=== PATIENT | male | born 2000 | race Caucasian/White ===

== ENCOUNTER 2022-07-10 02:09 | Inpatient (IN) | payer OTHER ==
[~2022-07-10] VITALS: Ht 175.3 cm; Wt 116.4 kg
[2022-07-10 03:48] LABS: HEMATOCRIT 43.9 % (42.0-52.0); MEAN CORPUSCULAR HEMOGLOBIN 28.6 pg (27.0-33.0); MEAN CORPUSCULAR HGB CONC 34.2 g/dl (32.0-36.5); MEAN CORPUSCULAR VOLUME 83.8 fl (80.0-96.0); PLATELET COUNT, AUTOMATED 219 10^3/uL (150-450); RED BLOOD COUNT 5.24 10^6/uL (4.30-6.10); WHITE BLOOD COUNT 8.2 10^3/uL (4.0-10.0)
[2022-07-10 04:05] LABS: ETHYL ALCOHOL (ETHANOL) 0.005 % (0.000-0.010)
[2022-07-10 04:06] LABS: ACETAMINOPHEN LEVEL < 2.0 UG/ML (10.0-20.0); ALBUMIN 4.2 G/DL (3.2-5.2); ALKALINE PHOSPHATASE 83 U/L (46-116); ALT/SGPT 15 U/L (7.0-40); AST/SGOT 18 U/L (<34); BILIRUBIN,DIRECT 0.2 MG/DL (<0.4); BILIRUBIN,TOTAL 0.5 MG/DL (0.3-1.2); BLOOD UREA NITROGEN 18 MG/DL (9-23); CARBON DIOXIDE LEVEL 23 MMOL/L (20-31); CHLORIDE LEVEL 106 MMOL/L (98-107); GLUCOSE, FASTING 81 MG/DL (60-100); POTASSIUM SERUM 3.6 MMOL/L (3.5-5.1); SALICYLATE LEVEL < 3.0 MG/DL (<30); SODIUM LEVEL 142 MMOL/L (136-145); TOTAL PROTEIN 7.2 G/DL (5.7-8.2)
[2022-07-10 04:08] LABS: THYROID STIMULATING HORMONE 1.387 uIU/ML (0.48-4.17)
[2022-07-10 04:14] LABS: RSV AMPLIFICATION NEGATIVE (NEGATIVE)
[2022-07-10 04:22] LABS: AMPHETAMINES LEVEL URINE NEGATIVE (NEGATIVE); BARBITURATES URINE NEGATIVE (NEGATIVE); BENZODIAZEPINES URINE NEGATIVE (NEGATIVE); CANNABINOIDS URINE NEGATIVE (NEGATIVE); COCAINE METABOLITE URINE NEGATIVE (NEGATIVE); METHADONE URINE NEGATIVE (NEGATIVE); OPIATES URINE NEGATIVE (NEGATIVE); PHENCYCLIDINE URINE NEGATIVE (NEGATIVE)
[2022-07-10] MEDS ORDERED: HOME MED LIST COMPLETE! XX SCH (09:45)
[2022-07-10] MEDS ORDERED: NICOTINE POLACRILEX 2 MG GUM PO ONE (21:15)
[2022-07-12] MEDS ORDERED: NICOTINE POLACRILEX 2 MG GUM PO PRN (16:15)
[2022-07-12] MEDS ORDERED: LORazepam 1 MG TAB PO PRN (18:20)
[2022-07-12] MEDS ORDERED: traZODone 50 MG TAB PO PRN (18:20)
[2022-07-12] MEDS ORDERED: MAALOX 30 ML SUSP *UDC PO PRN (18:20)
[2022-07-12] MEDS ORDERED: ACETAMINOPHEN TAB 650MG DOSE (2X325MG) PO PRN (18:20)
[2022-07-12] MEDS ORDERED: MOM 30ML SUSPENSION UDC PO PRN (18:20)
[2022-07-12 22:54] VITALS: BP 145/72
[2022-07-13 06:37] VITALS: BP 117/58
[2022-07-13 16:07] VITALS: BP 125/74
[2022-07-14 06:39] VITALS: BP 163/73
[2022-07-15 06:20] VITALS: BP 125/57
[2022-07-15 16:24] VITALS: BP 123/59
[2022-07-16 06:47] VITALS: BP 146/68
[2022-07-16 17:35] VITALS: BP 140/66
[2022-07-17 06:39] VITALS: BP 144/64
[2022-07-17 16:25] VITALS: BP 132/83
[2022-07-18 06:01] VITALS: BP 150/86
[2022-07-18 18:25] VITALS: BP 158/68
[2022-07-19 05:59] VITALS: BP 131/79
== END 2022-07-19 13:05 | disposition home or self-care (01) | DRG 881 ==
LOC: EDBD 02:09 → M ED 02:09 → M ED INP 07-12 18:17 → M PSY 07-12 22:37
PROVIDERS: ADMIT Psychiatry & Neurology Psychiatry; ATTEND Psychiatry & Neurology Psychiatry
DX: F43.21 Adjustment disorder with depressed mood (principal); U07.1 COVID-19; R45.851 Suicidal ideations; F17.290 Nicotine dependence, other tobacco product, uncomplicated; F32.A Depression, unspecified

== ENCOUNTER 2024-01-14 20:51 | Inpatient (IN) | payer MEDICAID, OTHER, SELFPAY ==
[~2024-01-14] VITALS: Ht 177.8 cm; Wt 75.0 kg
[2024-01-14 21:27] LABS: HEMATOCRIT 45.1 % (42.0-52.0); HEMOGLOBIN 15.6 g/dl (13.5-17.5); MEAN CORPUSCULAR HEMOGLOBIN 29.3 pg (27.0-33.0); MEAN CORPUSCULAR HGB CONC 34.6 g/dl (32.0-36.5); MEAN CORPUSCULAR VOLUME 84.8 fl (80.0-96.0); PLATELET COUNT, AUTOMATED 219 10^3/uL (150-450); RED BLOOD COUNT 5.32 10^6/uL (4.30-6.10); WHITE BLOOD COUNT 8.5 10^3/uL (4.0-10.0)
[2024-01-14 21:50] LABS: ETHYL ALCOHOL (ETHANOL) < 0.003 % (0.000-0.010)
[2024-01-14 21:52] LABS: ALBUMIN 4.7 G/DL (3.2-5.2); ALKALINE PHOSPHATASE 94 U/L (46-116); ALT/SGPT 15 U/L (7.0-40); AST/SGOT 13 U/L (<34); BILIRUBIN,DIRECT 0.4 MG/DL (<0.4); BILIRUBIN,TOTAL 1.3 MG/DL (0.3-1.2); BLOOD UREA NITROGEN 10 MG/DL (9-23); CALCIUM LEVEL 10.9 MG/DL (8.5-10.1); CARBON DIOXIDE LEVEL 26 MMOL/L (20-31); CHLORIDE LEVEL 105 MMOL/L (98-107); CREATININE FOR GFR 1.16 MG/DL (0.70-1.30); GLOMERULAR FILTRATION RATE > 60.0 (>60); GLUCOSE, FASTING 96 MG/DL (60-100); POTASSIUM SERUM 4.1 MMOL/L (3.5-5.1); SALICYLATE LEVEL < 3.0 MG/DL (<30); SODIUM LEVEL 140 MMOL/L (136-145); TOTAL PROTEIN 7.8 G/DL (5.7-8.2)
[2024-01-14 21:54] LABS: THYROID STIMULATING HORMONE 1.521 uIU/ML (0.55-4.78)
[2024-01-15] MEDS ORDERED: HOME MED LIST COMPLETE! XX SCH (08:10)
[2024-01-15] MEDS ORDERED: traZODone 50 MG TAB PO PRN (12:10)
[2024-01-15] MEDS ORDERED: diphenhydrAMINE 25MG CAP PO PRN (12:10)
[2024-01-15] MEDS ORDERED: ACETAMINOPHEN TAB 650MG DOSE (2X325MG) PO PRN (12:10)
[2024-01-15] MEDS ORDERED: MOM 30ML SUSPENSION UDC PO PRN (12:10)
[2024-01-15] MEDS ORDERED: MAALOX 30 ML SUSP *UDC PO PRN (12:10)
[2024-01-15] MEDS ORDERED: IBUPROFEN 400MG TAB PO PRN (12:10)
[2024-01-15 13:12] LABS: AMPHETAMINES LEVEL URINE NEGATIVE (NEGATIVE)
[2024-01-15 13:13] LABS: BARBITURATES URINE NEGATIVE (NEGATIVE); BENZODIAZEPINES URINE NEGATIVE (NEGATIVE); CANNABINOIDS URINE NEGATIVE (NEGATIVE); COCAINE METABOLITE URINE NEGATIVE (NEGATIVE); METHADONE URINE NEGATIVE (NEGATIVE); OPIATES URINE NEGATIVE (NEGATIVE); PHENCYCLIDINE URINE NEGATIVE (NEGATIVE)
[2024-01-15 16:23] VITALS: BP 120/66; TEMP 98; O2SAT 97
[2024-01-16 06:30] VITALS: BP 111/55; TEMP 97.8; O2SAT 89
[2024-01-16 18:20] VITALS: BP 128/60; TEMP 97.1
[2024-01-17 06:17] VITALS: BP 103/57; TEMP 97.6; O2SAT 97
[2024-01-17 17:34] VITALS: BP 132/70; TEMP 97.6; O2SAT 99
[2024-01-18 06:22] VITALS: BP 139/70; TEMP 97.2; O2SAT 100
== END 2024-01-18 12:02 | disposition home or self-care (01) | DRG 755 ==
LOC: M ED 20:51 → M ED INP 01-15 12:09 → M PSY 01-15 15:00
PROVIDERS: ADMIT Student in an Organized Health Care Education/Training Program; ATTEND Student in an Organized Health Care Education/Training Program
DX: F43.23 Adjustment disorder with mixed anxiety and depressed mood (principal); F17.290 Nicotine dependence, other tobacco product, uncomplicated